=== PATIENT | female | born 1955 | race Caucasian/White ===

== ENCOUNTER → 2017-06-06 | Outpatient (CLI) | payer BC ==
[2005-05-03 07:15] VITALS: TEMP 98.8
== END ==
LOC: MC.RAD 14:28
DX: Z12.31 Encounter for screening mammogram for malignant neoplasm of breast (principal)

== ENCOUNTER 2018-09-24 11:40 | Emergency (ER) | payer MEDICARE, BC ==
[~2018-09-24] VITALS: Ht 162.6 cm; Wt 90.9 kg
[2018-09-24 11:42] VITALS: TEMP 97.9
[2018-09-24 12:29] LABS: BASO % 0.6 % (0.0-2.0); EOS # 0.1 (0.0-0.7); EOS % 1.5 % (0-4.0); GRAN # 4.4 (1.4-6.5); GRAN % 65.3 % (42.2-75.2); HEMATOCRIT 42.9 % (37.0-47.0); HEMOGLOBIN 14.9 g/dl (12.5-16.0); LYMPH % 29.2 % (20.0-51.0); MEAN CELL VOLUME 91 fl (80.0-100.0); MEAN CORPUSCULAR HEMOGLOBIN 31 pg (27.0-31.0); MEAN CORPUSCULAR HGB CONC 35 g/dl (33.0-37.0); MEAN PLATELET VOLUME 10.7 fl (7.4-10.4); MONO # 0.2 (0.1-0.6); MONO % 3.1 % (1.7-9.3); PLATELET COUNT 184 K/mm3 (130-400); RED BLOOD COUNT 4.74 M/mm3 (4.10-5.30); REDCELL DISTRIBUTION WIDTH-CV 11.8 % (11.5-14.5)
[2018-09-24 12:33] LABS: ANION GAP 7 mmol/L (7-16); BLOOD UREA NITROGEN 14 mg/dL (7-17); CALCIUM 9.5 mg/dL (8.4-10.2); CARBON DIOXIDE 30 mmol/L (22-30); CHLORIDE 103 mmol/L (98-107); CREATININE, serum 0.88 mg/dL (0.52-1.25); GLUCOSE 164 mg/dL (74-106); POTASSIUM 3.4 mmol/L (3.4-5.0); SODIUM 140 mmol/L (137-145)
[2018-09-24 12:44] LABS: TROPONIN-I < 0.012 ng/mL (0.000-0.034)
[2018-09-24] MEDS ORDERED: PRINZIDE 12.5 M1 TA1 PO (13:15)
[2018-09-24] MEDS ORDERED: CALAN120 MG PO (13:16)
[2018-09-24] MEDS ORDERED: ZOCOR 20MG20 MG PO (13:16)
[2018-09-24] MEDS ORDERED: BONINE25 MG PO (14:21)
[2018-09-24 15:19] VITALS: BP 157/77; PULSE 81
== END 2018-09-24 15:20 | disposition home or self-care (01) ==
LOC: COL.ER 11:40
PROVIDERS: Emergency Medicine
DX: R42 Dizziness and giddiness (principal)

== ENCOUNTER → 2018-10-28 | Outpatient (CLI) | payer MEDICARE, BC ==
[2005-05-03 07:15] VITALS: TEMP 98.8
[~2018-10-28] MED LIST: BONINE25 MG PO; CALAN120 MG PO; PRINZIDE 12.5 M1 TA1 PO; ZOCOR 20MG20 MG PO
== END ==
LOC: COL.RAD 13:50
DX: H53.8 Other visual disturbances (principal); R42 Dizziness and giddiness; R11.0 Nausea; R51 Headache
CPT/HCPCS: A9585

== ENCOUNTER → 2018-10-31 | Outpatient (CLI) | payer MEDICARE, BC ==
[2005-05-03 07:15] VITALS: TEMP 98.8
== END ==
LOC: MC.RAD 09:18
DX: Z12.31 Encounter for screening mammogram for malignant neoplasm of breast (principal)

== ENCOUNTER → 2019-05-12 | Outpatient (CLI) | payer MEDICARE, BC ==
[2005-05-03 07:15] VITALS: TEMP 98.8
[2019-05-12 13:42] LABS: CREATININE, serum 1.13 (0.52-1.25)
== END ==
LOC: COL.RAD 12:34 → COL.LAB 12:34
PROVIDERS: Nurse Practitioner
DX: R42 Dizziness and giddiness (principal); M54.2 Cervicalgia; M25.511 Pain in right shoulder; M79.601 Pain in right arm

== ENCOUNTER 2019-11-04 13:46 | Emergency (ER) | payer MEDICARE, BC ==
[~2019-11-04] VITALS: Ht 162.6 cm; Wt 90.9 kg
[2019-11-04 13:57] VITALS: TEMP 98.5
[2019-11-04] MEDS ORDERED: NORCO 325 MG-101 TAB PO (16:27)
[2019-11-04 17:20] VITALS: BP 145/71; PULSE 61
== END 2019-11-04 17:20 | disposition home or self-care (01) ==
LOC: COL.ER 13:46
DX: S42.291A Other displaced fracture of upper end of right humerus, initial encounter for closed fracture (principal); W10.9XXA Fall (on) (from) unspecified stairs and steps, initial encounter; Y92.009 Unspecified place in unspecified non-institutional (private) residence as the place of occurrence of the external cause
CPT/HCPCS: J1885; J3010; J7030

== ENCOUNTER 2020-06-18 15:31 | Emergency (ER) | payer MEDICARE, BC ==
[~2020-06-18] VITALS: Ht 162.6 cm; Wt 93.6 kg
[~2020-06-18 15:31] MED LIST changes: +NORCO 325 MG-101 TAB PO
[2020-06-18 15:39] VITALS: BP 163/81; TEMP 98.6
[2020-06-18] MEDS ORDERED: VALIUM 2MG T2 MG/TAB PO ×2 (17:23→17:25)
[2020-06-18 18:10] LABS: COLLECTION METHOD CLEAN CATCH
[2020-06-18 18:15] LABS: MUCOUS Present /lpf; PH 5 (5-8); SQUAMOUS EPITHELIAL 0-2 /hpf; URINE APPEARANCE Clear; URINE BACTERIA None Seen /hpf; URINE BILIRUBIN Negative (NEGATIVE); URINE BLOOD Negative (NEGATIVE); URINE COLOR Yellow; URINE GLUCOSE Negative (NEGATIVE); URINE KETONE Negative (NEGATIVE); URINE LEUKOCYTE ESTERASE Negative (NEGATIVE); URINE NITRATE Negative (NEGATIVE); URINE PROTEIN(semi-quant) Negative (NEGATIVE); URINE RBC 0-2 /hpf; URINE UROBILINOGEN Negative (NEGATIVE)
[2020-06-18 18:30] VITALS: PULSE 76
== END 2020-06-18 18:30 | disposition home or self-care (01) ==
LOC: COL.ER 15:31
PROVIDERS: Family Medicine
DX: M54.5 Low back pain (principal); I10 Essential (primary) hypertension
CPT/HCPCS: J1885

== ENCOUNTER → 2021-02-19 | Outpatient (CLI) | payer MEDICARE, BC ==
[~2021-02-19] MED LIST changes: +VALIUM 2MG T2 MG/TAB PO
== END ==
LOC: DIA.ED 10:59
DX: E11.40 Type 2 diabetes mellitus with diabetic neuropathy, unspecified (principal); Z79.84 Long term (current) use of oral hypoglycemic drugs; E78.5 Hyperlipidemia, unspecified; E66.8 Other obesity
CPT/HCPCS: G0108

== ENCOUNTER → 2021-02-26 | Outpatient (CLI) | payer MEDICARE, BC | LOC: DIA.ED 08:45 | DX: E11.40 Type 2 diabetes mellitus with diabetic neuropathy, unspecified (principal); Z79.84 Long term (current) use of oral hypoglycemic drugs; E78.5 Hyperlipidemia, unspecified ==

== ENCOUNTER → 2021-04-04 | Outpatient (CLI) | payer MEDICARE, BC | LOC: DIA.ED 09:25 | DX: E11.22 Type 2 diabetes mellitus with diabetic chronic kidney disease (principal); Z79.84 Long term (current) use of oral hypoglycemic drugs; E78.5 Hyperlipidemia, unspecified; N18.9 Chronic kidney disease, unspecified ==

== ENCOUNTER 2021-04-18 12:51 | Outpatient (RCR) | payer MEDICARE, BC | END 2021-07-17 | disposition home or self-care (01) | LOC: MKS.ESL.PT | DX: G43.809 Other migraine, not intractable, without status migrainosus (principal) ==

== ENCOUNTER 2022-06-06 11:04 | Observation (INO) | payer MEDICARE, BC ==
[~2022-06-06] VITALS: Ht 162.6 cm; Wt 85.4 kg
[2022-06-06 11:42] LABS: BASO # 0.1 K/mm3 (0.0-0.2); BASO % 0.5 % (0.0-2.0); EOS # 0.2 K/mm3 (0.0-0.7); EOS % 1.4 % (0.0-4.0); GRAN % 75.1 % (42.2-75.2); HEMATOCRIT 39.7 % (37.0-47.0); HEMOGLOBIN 13.5 g/dl (12.5-16.0); LYMPH % 18.2 % (20.0-51.0); MEAN CELL VOLUME 90 fl (80.0-100.0); MEAN CORPUSCULAR HEMOGLOBIN 31 pg (27-31); MEAN CORPUSCULAR HGB CONC 34 g/dl (33.0-37.0); MEAN PLATELET VOLUME 11.3 fl (7.4-10.4); MONO # 0.5 K/mm3 (0.1-0.6); MONO % 4.5 % (1.7-9.3); PLATELET COUNT 211 K/mm3 (130-400); RED BLOOD COUNT 4.43 M/mm3 (4.10-5.30); REDCELL DISTRIBUTION WIDTH-CV 12.2 % (11.5-14.5)
[2022-06-06 12:04] LABS: ALANINE AMINOTRANSFERASE 36 U/L (0-55); ALBUMIN 3.9 gm/dL (3.4-4.8); ALKALINE PHOSPHATASE 89 U/L (40-150); ANION GAP 15 mmol/L (7-16); AST,SGOT 27 U/L (5-34); BILIRUBIN,TOTAL 0.7 mg/dL (0.2-1.2); BLOOD UREA NITROGEN 14 mg/dL (10-20); CALCIUM 9.3 mg/dL (8.4-10.2); CARBON DIOXIDE 25 mmol/L (23-31); CHLORIDE 101 mmol/L (98-107); CREATININE, serum 0.75 mg/dL (0.57-1.11); GLUCOSE 170 mg/dL (70-99); LIPASE 51 U/L (8-78); POTASSIUM 3.5 mmol/L (3.5-4.5); SODIUM 141 mmol/L (136-145); TOTAL PROTEIN 6.9 gm/dL (6.2-8.1)
[2022-06-06 12:10] LABS: TROPONIN-I < 0.010 ng/mL (0.00-0.033)
[2022-06-06] MEDS ORDERED: GLUCOPHAGE XR500 M1 PO (16:48)
[2022-06-06] MEDS ORDERED: INDERAL40 MG PO (16:49)
[2022-06-06] MEDS ORDERED: ZANAFLEX2 MG PO (16:50)
[2022-06-06] MEDS ORDERED: SINGULAIR 110 MG/TAB PO (16:50)
[2022-06-06] MEDS ORDERED: EFFEXOR 75M75 MG/TAB PO (16:50)
[2022-06-06 18:23] VITALS: BP 153/96; PULSE 79; TEMP 99
--- NOTE | 2022-06-06 18:30 | NUR ---
PATIENT ADMITED INTO ROOM 331 FROM ER. PATIENT SETTLED INTO ROOM AND VITALS OBTAINED. ONCOLOGY COORDINATOR TAKING OVER, REPORT GIVEN.
[2022-06-06] MEDS ORDERED: MEVACOR 20M20 MG/TAB PO (19:24)
[2022-06-06] MEDS ORDERED: ZOFRAN 4MG T4 MG/TAB PO (19:25)
[2022-06-06] MEDS ORDERED: RIBOFLAVIN400 MG PO (19:26)
[2022-06-06] MEDS ORDERED: INDERAL80 MG PO (19:29)
--- NOTE | 2022-06-06 20:00 | NUR ---
PT IN BED, ALERT AND ORIENTED X4. SPOUSE AT BEDSIDE. ADMISSION QUESTIONS COMPLETED, MED REC DONE. HAS IVF TO RFA INFUSING WITHOUT PROBLEM. DENIES PAIN AT THIS TIME. ATE DINNER WITHOUT N/V.
[2022-06-06 21:32] VITALS: BP 151/67; PULSE 89; TEMP 98.9
[2022-06-07] VITALS (14 sets, daily range): BP systolic 93–165; BP diastolic 45–70; PULSE 61–81; TEMP 97.7–99.3
--- NOTE | 2022-06-07 | NUR ---
PT NPO FOR ROBOTIC PRINCESS IN THE AM.
--- NOTE | 2022-06-07 06:00 | NUR ---
CONSENT SIGNED FOR SURGERY. PT HAS BEEN NPO.
--- NOTE | 2022-06-07 06:40 | NUR ---
appears to be dozing, awakened and bedside shift report received from CARLOS Marion, up to bathroom in anticipation of going to surgery,
[2022-06-07 06:54] LABS: BASO % 0.3 % (0.0-2.0); EOS # 0.1 K/mm3 (0.0-0.7); EOS % 1.3 % (0.0-4.0); GRAN # 5.4 K/mm3 (1.4-6.5); GRAN % 67.1 % (42.2-75.2); LYMPH # 2.1 K/mm3 (1.2-3.4); LYMPH % 25.6 % (20.0-51.0); MEAN CORPUSCULAR HGB CONC 33 g/dl (33.0-37.0); MEAN PLATELET VOLUME 10.7 fl (7.4-10.4); MONO # 0.4 K/mm3 (0.1-0.6); MONO % 5.4 % (1.7-9.3); PLATELET COUNT 219 K/mm3 (130-400); RED BLOOD COUNT 3.71 M/mm3 (4.10-5.30); REDCELL DISTRIBUTION WIDTH-CV 12.5 % (11.5-14.5)
--- NOTE | 2022-06-07 06:58 | NUR ---
to surgery per bed
[2022-06-07 07:13] LABS: CALCIUM 8.9 mg/dL (8.4-10.2); CREATININE, serum 0.81 mg/dL (0.57-1.11); POTASSIUM 3.5 mmol/L (3.5-4.5)
[2022-06-07 07:24] LABS: HEMATOCRIT 35.1 % (37.0-47.0); HEMOGLOBIN 11.4 g/dl (12.5-16.0); MEAN CELL VOLUME 95 fl (80.0-100.0); MEAN CORPUSCULAR HEMOGLOBIN 31 pg (27-31)
--- NOTE | 2022-06-07 09:00 | NUR ---
remains in surgery
[2022-06-07] MEDS ORDERED: PERCOCET 325 MG1 TA2 PO (09:39)
[2022-06-07] MEDS ORDERED: AMOXICILLIN 8751 TAB PO (09:40)
--- NOTE | 2022-06-07 09:43 | NUR ---
The patient is down in surgery. JOVAN met with the patient's , Elieser (ph#[phone]), to discuss discharge plan. The patient lives in [place] with her . Elieser reports that the patient is independent with ADLs and does not have any DME. The patient's PCP is Dr. Flor Lewis and she receives her medications from [facility]. The patient does not have a DPOA-HC. Elieser reports that the plan is for the patient to return home with him upon discharge. No additional needs at this time. *Discharge plan: home with *
--- NOTE | 2022-06-07 10:15 | NUR ---
returned to room per bed from PACU, awake and alert, IV infusing per gravity, O2 on at 2L/nC and O2 sat 97%, full assessment completed, see interventions for further info, eating ice chips and toelrating well, 5 robotic sites that are CD&I, denies needs, at bedside
--- NOTE | 2022-06-07 10:30 | NUR ---
was incontinent of small amount of urine, assisted up to bathroom and voided qs, then back to bed, O2 sat on room air after returning to bed was 88%, O2 back on at 1L/NC
--- NOTE | 2022-06-07 11:15 | NUR ---
appears to be dozing, awakens easily and denies needs
--- NOTE | 2022-06-07 11:46 | NUR ---
states pain is better and is able to doze, lunch was ordered,
--- NOTE | 2022-06-07 12:11 | NUR ---
sitting up in bed and ready for lunch as it is served
--- NOTE | 2022-06-07 13:00 | NUR ---
dozing between checks, O2 has been at 1L/NC and is removed at this time and will monitor
--- NOTE | 2022-06-07 14:00 | NUR ---
dozes at intervals, O2 is back on at 1L/NC placed by cardiopulmonary for O2 sat 87-88% while dozing, encouraged to C&DB
--- NOTE | 2022-06-07 15:17 | NUR ---
[facility]: Mosque Situation: senior medical director stopped by room on rounds Background: Pt was resting and content Assessment: Pt asked for prayer, senior medical director prayed and pt appreciated the visit Recommendation: senior medical director will follow up as needed
--- NOTE | 2022-06-07 15:43 | NUR ---
appears to be sleeping, in bed with eyes closed, resp quiet and easy, appears to be sleeping on bench seat
--- NOTE | 2022-06-07 16:23 | NUR ---
up and ambulating in carter with [employer]ER
--- NOTE | 2022-06-07 16:40 | NUR ---
IV site was damp and appeared to may be leaking, tape and tegaderm removed and no leaking noted, retaped and will monitor
--- NOTE | 2022-06-07 17:14 | NUR ---
after sitting up in chair, O2 sat 93% on room air, Dr Giron in to see patient
--- NOTE | 2022-06-07 17:27 | NUR ---
sitting up in chair eating supper, denies needs
--- NOTE | 2022-06-07 18:37 | NUR ---
bedside shift report given to CARLOS Marion
--- NOTE | 2022-06-07 18:38 | NUR ---
bedside shift report given to CARLOS Marion
--- NOTE | 2022-06-07 19:30 | NUR ---
PT AMBULATES IN HALLWAY WITH SPOUSE. GAIT STEADY. IV SITE TO RT OUTER FOREARM LEAKING. WILL RESTART WHEN PT RETURNS TO ROOM.
--- NOTE | 2022-06-07 19:42 | NUR ---
PT COMPLAINS OF ABD PAIN, MEDICATED WITH PERCOCET 1 TAB PO NOW.
--- NOTE | 2022-06-07 20:50 | NUR ---
IV RESTARTED TO RFA WITH #22 INSYTE ON FIRST ATTEMPT. IVF CONNECTED AND INFUSING WITHOUT PROBLEM. PT REPORTS GOOD PAIN RELIEF WITH PERCOCET. ABD LAP SITES X5 GLUED AND DRY. PT REPORTS HAVING BM.
[2022-06-08 03:59] VITALS: BP 118/51; PULSE 73; TEMP 98.4
--- NOTE | 2022-06-08 04:14 | NUR ---
PT AWAKE, MEDICATED WITH PERCOCET 1 TAB PO FOR ABD INCISIONAL PAIN.
[2022-06-08 06:24] LABS: BASO % 0.3 % (0.0-2.0); EOS # 0.1 K/mm3 (0.0-0.7); GRAN # 8.8 K/mm3 (1.4-6.5); GRAN % 82.4 % (42.2-75.2); LYMPH # 1.2 K/mm3 (1.2-3.4); LYMPH % 11.2 % (20.0-51.0); MEAN CELL VOLUME 94 fl (80.0-100.0); MEAN CORPUSCULAR HEMOGLOBIN 31 pg (27-31); MEAN CORPUSCULAR HGB CONC 33 g/dl (33.0-37.0); MEAN PLATELET VOLUME 10.9 fl (7.4-10.4); MONO # 0.5 K/mm3 (0.1-0.6); MONO % 4.5 % (1.7-9.3); PLATELET COUNT 212 K/mm3 (130-400); RED BLOOD COUNT 3.54 M/mm3 (4.10-5.30); REDCELL DISTRIBUTION WIDTH-CV 12.7 % (11.5-14.5)
[2022-06-08 06:29] LABS: HEMATOCRIT 33.4 % (37.0-47.0)
[2022-06-08 06:36] LABS: ALBUMIN 2.7 gm/dL (3.4-4.8); CALCIUM 8.7 mg/dL (8.4-10.2); CREATININE, serum 0.83 mg/dL (0.57-1.11); MAGNESIUM 1.9 mg/dL (1.6-2.6); PHOSPHOROUS 3.6 mg/dL (2.3-4.7); POTASSIUM 4.1 mmol/L (3.5-4.5)
[2022-06-08 07:22] VITALS: BP 141/78; PULSE 70; TEMP 98.3
--- NOTE | 2022-06-08 08:00 | NUR ---
Patient sitting up in the recliner, A&Ox4. VSS. IV CDI, fluids infusing. Reports pain in abdomen. Pain medication given as requested. Warm blanket and pillow for comfort over abdomen. Call light within reach
--- NOTE | 2022-06-08 11:10 | NUR ---
Initial visit; Patient thanked [employer] Inspector for looking in on her and offering God's blessings and to keep her in [place]'s prayers.
[2022-06-08 12:00] VITALS: BP 114/51; PULSE 62; TEMP 97.6
--- NOTE | 2022-06-08 14:33 | NUR ---
Discharge paperwork reviewed with the patient and . Patient verbalized an understanding to follow doctors orders. IV removed, tip intact. Patient transfered to vehicle by wheelchair by nursing staff. No further needs expressed
== END 2022-06-08 14:35 | disposition home or self-care (01) ==
LOC: COL.ER 11:04 → SURG 16:04
PROVIDERS: Emergency Medicine; ADMIT Internal Medicine
DX: K80.12 Calculus of gallbladder with acute and chronic cholecystitis without obstruction (principal); J45.909 Unspecified asthma, uncomplicated; Z79.899 Other long term (current) drug therapy; E11.9 Type 2 diabetes mellitus without complications; Z79.84 Long term (current) use of oral hypoglycemic drugs
CPT/HCPCS: A9284; G0378; J0360; J0690; J1170; J1815; J1885; J2270; J2405; J2543; J2704; J2765; J3010; J7030; J7120; Q9967

== ENCOUNTER → 2022-09-20 | Outpatient (CLI) | payer MEDICARE, BC ==
[~2022-09-20] MED LIST changes: +AMOXICILLIN 8751 TAB PO; +EFFEXOR 75M75 MG/TAB PO; +GLUCOPHAGE XR500 M1 PO; +INDERAL40 MG PO; +INDERAL80 MG PO; +MEVACOR 20M20 MG/TAB PO; +PERCOCET 325 MG1 TA2 PO; +RIBOFLAVIN400 MG PO; +SINGULAIR 110 MG/TAB PO; +ZANAFLEX2 MG PO; +ZOFRAN 4MG T4 MG/TAB PO
== END ==
LOC: MC.RAD 10:40
DX: R92.8 Other abnormal and inconclusive findings on diagnostic imaging of breast (principal); N64.89 Other specified disorders of breast